=== PATIENT | male | born 1995 | race Two or more races ===

== ENCOUNTER → 2017-04-19 | Outpatient (CLI) | payer BC, MEDICAID ==
[2017-04-19 08:04] LABS: BASOPHILS % 1.3 % (0.0-2.0); EOSINOPHILS % 1.7 % (0.0-5.0); HEMATOCRIT. 50.7 % (42.0-52.0); HEMOGLOBIN. 17.1 g/dL (14.0-18.0); LYMPHOCYTES % 43.2 % (20.0-50.0); MEAN CORPUSCULAR HEMOGLOBIN 32.9 pg (28.0-32.0); MEAN CORPUSCULAR VOLUME 97.1 fL (80.0-94.0); MEAN PLATELET VOLUME 7.1 fl (7.4-10.4); MONOCYTES % 9.9 % (2.0-8.0); NEUTROPHILS % 43.9 % (40.0-76.0); PLATELET 341 x1000/uL (130-400); RED BLOOD CELL COUNT 5.22 mill/uL (4.7-6.1); RED CELL DISTRIBUTION WIDTH 13.7 % (11.6-14.6)
[2017-04-19 08:46] LABS: CHLORIDE 104 mEq/L (98-107)
[2017-04-19 09:43] LABS: CARBON DIOXIDE 27 mEq/L (21-32); HDL CHOLESTEROL 50 mg/dL (40-59); LDL CHOLESTEROL 111 mg/dL (5-100)
== END | disposition home or self-care (01) ==
LOC: LAB 07:16
PROVIDERS: ATTEND Internal Medicine
DX: J18.9 Pneumonia, unspecified organism (principal); R06.00 Dyspnea, unspecified
CPT/HCPCS: 36415; 71010; 80051; 80053; 80061; 82248; 83036; 84443; 84481; 85025

== ENCOUNTER → 2018-02-27 | Outpatient (CLI) | payer BC, MEDICAID ==
[2018-02-27 07:57] LABS: EOSINOPHILS % 1.1 % (0.0-5.0); HEMATOCRIT. 49.8 % (42.0-52.0); HEMOGLOBIN. 16.9 g/dL (14.0-18.0); LYMPHOCYTES % 34.5 % (20.0-50.0); MEAN CORPUSCULAR HEMOGLOBIN 33.4 pg (28.0-32.0); MEAN PLATELET VOLUME 7.3 fl (7.4-10.4); NEUTROPHILS % 53.4 % (40.0-76.0); PLATELET 263 x1000/uL (130-400); RED BLOOD CELL COUNT 5.08 mill/uL (4.7-6.1); RED CELL DISTRIBUTION WIDTH 14.2 % (11.6-14.6)
[2018-02-27 08:06] LABS: CHLORIDE 105 mEq/L (98-107)
[2018-02-27 08:21] LABS: LDL CHOLESTEROL 86 mg/dL (5-100)
[2018-02-27 08:26] LABS: HDL CHOLESTEROL 51 mg/dL (40-59); T4 FREE 0.93 ng/dL (0.76-1.46)
== END | disposition home or self-care (01) ==
LOC: LAB 06:53
PROVIDERS: ATTEND Internal Medicine
DX: E78.5 Hyperlipidemia, unspecified (principal)
CPT/HCPCS: 36415; 80053; 80061; 80076; 84439; 84443; 85025

== ENCOUNTER 2019-09-15 18:50 | Emergency (ER) | payer BC ==
[~2019-09-15] VITALS: Ht 154.9 cm; Wt 68.0 kg
[2019-09-15] MEDS ORDERED: VISCOUS LIDOCAINE 2% 15 ML UDC PO STA (19:43)
[2019-09-15] MEDS ORDERED: FAMOTIDINE 20MG/2ML VIAL IV STA (19:43)
[2019-09-15] MEDS ORDERED: MAGNESIUM/ALUMINUM HYDROXIDE/SIMETHICONE 30ML UDC PO STA (19:43)
[2019-09-15] MEDS ORDERED: SODIUM CHLORIDE 0.9% 1,000 ML IV ONE (19:45)
[2019-09-15] MEDS ORDERED: ONDANSETRON HCL 4MG/2ML INJ IV ONE (19:45)
[2019-09-15 20:21] LABS: HEMATOCRIT. 50.7 % (42.0-52.0); HEMOGLOBIN. 17.5 g/dL (14.0-18.0); MEAN CORPUSCULAR HEMOGLOBIN 34.3 pg (28.0-32.0); MEAN CORPUSCULAR VOLUME 99.7 fL (80.0-94.0); MEAN PLATELET VOLUME 7.6 fl (7.4-10.4); PLATELET 298 x1000/uL (130-400); RED BLOOD CELL COUNT 5.09 mill/uL (4.7-6.1); RED CELL DISTRIBUTION WIDTH 13.9 % (11.6-14.6)
[2019-09-15 20:26] LABS: INR 1.2; PROTHROMBIN TIME 11.9 sec (9.6-11.0)
[2019-09-15 21:09] LABS: CHLORIDE 105 mEq/L (98-107)
[2019-09-15 22:20] LABS: ATYPICAL LYMPHOCYTES 1; PLATELET ESTIMATE NORMAL
[2019-09-15] MEDS ORDERED: SODIUM CHLORIDE 0.9% 500 ML IV ONE (23:15)
[2019-09-16 00:48] VITALS: BP 97/55
== END 2019-09-16 00:59 | disposition home or self-care (01) ==
LOC: ER 18:50
DX: R10.84 Generalized abdominal pain (principal); R11.2 Nausea with vomiting, unspecified; Q90.9 Down syndrome, unspecified; R47.01 Aphasia
CPT/HCPCS: 36415; 80053; 83690; 85025; 85610; 96361; 96374; 96375; 99283; J2405; J3490; J7030; J7040; Z7610

== ENCOUNTER → 2019-12-17 | Outpatient (CLI) | payer BC ==
[2019-12-17 08:15] LABS: EOSINOPHILS % 0.7 % (0.0-5.0); HEMATOCRIT. 49.1 % (42.0-52.0); HEMOGLOBIN. 16.9 g/dL (14.0-18.0); LYMPHOCYTES % 16.8 % (20.0-50.0); MEAN CORPUSCULAR HEMOGLOBIN 35.1 pg (28.0-32.0); MEAN CORPUSCULAR VOLUME 101.9 fL (80.0-94.0); MEAN PLATELET VOLUME 7.2 fl (7.4-10.4); MONOCYTES % 7.2 % (2.0-8.0); NEUTROPHILS % 74.3 % (40.0-76.0); PLATELET 282 x1000/uL (130-400); RED BLOOD CELL COUNT 4.82 mill/uL (4.7-6.1); RED CELL DISTRIBUTION WIDTH 15.9 % (11.6-14.6)
[2019-12-17 08:22] LABS: CHLORIDE 106 mEq/L (98-107)
[2019-12-17 08:29] LABS: LDL CHOLESTEROL 75 mg/dL (5-100)
[2019-12-17 08:30] LABS: HDL CHOLESTEROL 48 mg/dL (40-59)
[2019-12-17 12:32] LABS: HEPATITIS B SURFACE ANTIGEN NEGATIVE
[2019-12-21 08:07] LABS: QFT MITOGEN VALUE >10.00 IU/mL (.); QFT TB GOLD PLUS Negative (Negative); QFT TB1 AG VALUE 0.02 IU/mL (.)
== END | disposition home or self-care (01) ==
LOC: LAB 07:26
DX: L40.9 Psoriasis, unspecified (principal); Z79.899 Other long term (current) drug therapy
CPT/HCPCS: 36415; 80053; 80061; 85025; 86705; 87340; 87350; 87522

== ENCOUNTER → 2021-04-30 | Outpatient (CLI) | payer BC ==
[2021-04-30 08:15] LABS: CHLORIDE 107 mEq/L (98-107)
[2021-04-30 08:16] LABS: BASOPHILS % 1.1 % (0.0-2.0); EOSINOPHILS % 1.5 % (0.0-5.0); HEMATOCRIT. 49.3 % (42.0-52.0); HEMOGLOBIN. 17.1 g/dL (14.0-18.0); LYMPHOCYTES % 36.4 % (20.0-50.0); MEAN CORPUSCULAR HEMOGLOBIN 35.3 pg (28.0-32.0); MEAN PLATELET VOLUME 7.3 fl (7.4-10.4); MONOCYTES % 10.3 % (2.0-8.0); NEUTROPHILS % 50.7 % (40.0-76.0); PLATELET 246 x1000/uL (130-400); RED BLOOD CELL COUNT 4.84 mill/uL (4.7-6.1); RED CELL DISTRIBUTION WIDTH 13.6 % (11.6-14.6)
[2021-04-30 08:27] LABS: LDL CHOLESTEROL 97 mg/dL (5-100)
[2021-04-30 08:28] LABS: HDL CHOLESTEROL 56 mg/dL (40-59)
== END | disposition home or self-care (01) ==
LOC: LAB 06:58
PROVIDERS: ATTEND Internal Medicine
DX: Q90.9 Down syndrome, unspecified (principal)
CPT/HCPCS: 36415; 80053; 80061; 82248; 84436; 84443; 85025

== ENCOUNTER → 2021-12-17 | Outpatient (CLI) | payer BC ==
[2021-12-17 14:20] LABS: CHLORIDE 110 mEq/L (98-107)
== END | disposition home or self-care (01) ==
LOC: LAB 06:56
DX: Z79.899 Other long term (current) drug therapy (principal)
CPT/HCPCS: 36415; 80053; 86480

== ENCOUNTER → 2023-04-24 | Outpatient (CLI) | payer BC ==
[2023-04-26 06:12] LABS: QFT MITOGEN VALUE >10.00 IU/mL (.); QFT TB GOLD PLUS Negative (Negative); QFT TB1 AG VALUE 0.06 IU/mL (.); QFT TB2 AG VALUE 0.06 IU/mL (.)
== END | disposition home or self-care (01) ==
LOC: LAB 13:49
DX: Z79.899 Other long term (current) drug therapy (principal)
CPT/HCPCS: 86480